=== PATIENT | female | born 1980 | race Caucasian/White ===

== ENCOUNTER → 2022-12-11 18:07 | Outpatient (CLI) | payer OTHER, SELFPAY ==
--- NOTE | ~2022-12-11 | XR_ITS ---
Cervical Spine: AP, lateral, open-mouth views Clinical History: Pain Findings: There is minimal reversal of the normal cervical lordosis. 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 The intervertebral disc spaces are well maintained. Pre-vertebral soft t issues are unremarkable. Impression: Minimal reversal normal cervical lordosis, otherwise unremarkable exam. Reviewed, dictated and finalized at location . Impression: Minimal reversal normal cervical lordosis, otherwise unremarkable exam.
--- NOTE | ~2022-12-11 | XR_ITS ---
EXAM: XR foot RT min 3V DATE: 12/11/2022 18:43 HISTORY: 2ND DIGIT PAIN, NO KNOWN INJURY, PT STATED NO SURGERY EITHER . COMPARISON: None available. FINDINGS: Normal mineralization. No fracture or dislocation. No lytic or blastic lesion. Plantar ent hesopathy. Mild scattered degenerative changes. A broken sewing needle fragment is present in the geena ntar soft tissues deep to the second metatarsal neck. No erosion or periosteal change. IMPRESSION: A broken sewing needle fragment is present in the plantar soft tissues deep to the second metatarsal neck. Reviewed, dictated and finalized at location [facility]. IMPRESSION: A broken sewing needle fragment is present in the plantar soft tiss ues deep to the second metatarsal neck.
--- NOTE | ~2022-12-11 | XR_ITS ---
Thoracic spine: Clinical Indication: Back pain AP and lateral views were performed. No fracture is seen. There is normal alignment of the vertebrae. The intervertebral disc spaces appe ar normal. Paravertebral soft tissues appear normal. Impression: No significant abnormalities noted. Reviewed, dictated and finalized at [facility]. Impression: No significant abnormalities noted.
== END ==
PROVIDERS: PCP Physician Assistant; Visit Provider Physician Assistant
DX: M40.46 Postural lordosis, lumbar region (principal); W27.3XXD Contact with needle (sewing), subsequent encounter; G89.29 Other chronic pain
CPT/HCPCS: 72040; 72072; 73630